=== PATIENT | male | born 1985 | race Hispanic/Latino ===

== ENCOUNTER 2017-12-08 04:32 | Emergency (ER) | payer SELFPAY ==
[~2017-12-08 04:32] MED LIST: ACET1TAB12 PO
[2017-12-08] MEDS ORDERED: KETOROLAC TROMETHAMINE 60 MG/2 ML VIAL ONE (04:53)
[2017-12-08] MEDS ORDERED: HYDROCODONE/ACETAMINOPHEN 5/325 MG TAB ONE (04:55)
== END 2017-12-08 05:48 | disposition home or self-care (01) ==
LOC: EDH 04:32
DX: K02.9 Dental caries, unspecified (principal); F12.10 Cannabis abuse, uncomplicated; Z72.0 Tobacco use
CPT/HCPCS: 96372; 99283; J1885